=== PATIENT | male | born 1945 | race Hispanic/Latino ===

== ENCOUNTER 2021-11-13 05:48 | Day surgery (SDC) | payer OTHER ==
[2021-11-08 15:44] LABS: BASOPHILS % (AUTO) 0.4 % (0.0-5.0); EOSINOPHILS % (AUTO) 11.3 % (0.0-8.0); HEMATOCRIT 41.2 % (42-54); LYMPHOCYTES % (AUTO) 31.7 % (21.0-51.0); MEAN CORPUSCULAR HEMOGLOBIN 31.4 pg (27.0-33.0); MEAN CORPUSCULAR HGB CONC 33.5 g/dL (32.0-36.0); MEAN CORPUSCULAR VOLUME 93.6 fL (79-99); MONOCYTES % (AUTO) 8.3 % (3.0-13.0); NEUTROPHILS % (AUTO) 47.9 % (40.0-77.0); PLATELET COUNT (AUTO) 133 K/uL (130-400); RED CELL DISTRIBUTION WIDTH 13.5 % (11.0-15.5)
[2021-11-08 15:54] LABS: INR 0.96 (0.85-1.15); PROTHROMBIN TIME 10.5 SEC (9.6-11.6)
[2021-11-08 15:55] LABS: PARTIAL THROMBOPLASTIN TIME 25.1 SEC (26.3-35.5)
[2021-11-08 15:57] LABS: CREATININE 1.6 mg/dL (0.5-1.5); POTASSIUM 4.9 mmol/L (3.5-5.1)
[2021-11-12 11:58] VITALS: BP 136/71
[2021-11-13] VITALS (9 sets, daily range): BP systolic 95–152; BP diastolic 61–85
[~2021-11-13] VITALS: Ht 175.3 cm; Wt 108.7 kg
[~2021-11-13 05:48] MED LIST: AEC81 PO; AMIO200T68 PO; ATOR10 PO; CARV25TA77 PO; FURO20TA4 PO; GABA300C PO; METF-444 PO; SACU1TAB4 PO; VITAMIN B12 PO
[2021-11-13] MEDS ORDERED: 0.9%NACL 1000ML 1,000 ML IV ONE (07:18)
[2021-11-13] MEDS ORDERED: MIDAZOLAM HCL 1 MG/ML 2ML VIAL ONE ×2 (07:40→07:56)
[2021-11-13] MEDS ORDERED: CEFAZOLIN SODIUM 1 GM VIAL ONE ×2 (07:40→09:08)
[2021-11-13] MEDS ORDERED: BUPIVACAINE/PF 0.25% 30ML VIAL IJ ONE (07:40)
[2021-11-13] MEDS ORDERED: LIDOCAINE HCL 400MG/20ML VIAL ONE (07:40)
[2021-11-13] MEDS ORDERED: MEPERIDINE-PF 25 MG/ML SYG ONE ×2 (07:40→07:56)
[2021-11-13] MEDS ORDERED: OCTYL 2-CYANOACRYLATE 1 EACH TP ONE (08:45)
[2021-11-13] MEDS ORDERED: DEXTROSE 50%-WATER 50 ML DISP.SYRIN IV PRN (09:00)
[2021-11-13] MEDS ORDERED: ACETAMINOPHEN 325 MG TAB PO PRN ×2 (09:00)
[2021-11-13] MEDS ORDERED: INSULIN HUMULIN R 100 UNIT/ML 3ML SQ SCH (11:30)
[2021-11-13] MEDS ORDERED: CEFAZOLIN SODIUM 1 GM VIAL IVP SCH (14:00)
== END 2021-11-13 12:50 | disposition home or self-care (01) ==
LOC: DAH 05:48
PROVIDERS: ATTEND Internal Medicine Cardiovascular Disease
DX: Z45.02 Encounter for adjustment and management of automatic implantable cardiac defibrillator (principal); I42.8 Other cardiomyopathies; E11.22 Type 2 diabetes mellitus with diabetic chronic kidney disease; I50.42 Chronic combined systolic (congestive) and diastolic (congestive) heart failure; N18.30 Chronic kidney disease, stage 3 unspecified; I49.5 Sick sinus syndrome; E78.5 Hyperlipidemia, unspecified; G47.33 Obstructive sleep apnea (adult) (pediatric); Z79.84 Long term (current) use of oral hypoglycemic drugs; Z79.82 Long term (current) use of aspirin; Z79.01 Long term (current) use of anticoagulants; Z83.3 Family history of diabetes mellitus; Z82.49 Family history of ischemic heart disease and other diseases of the circulatory system; Z98.890 Other specified postprocedural states; Z79.899 Other long term (current) drug therapy
CPT/HCPCS: 33264; 36415; 80048; 82948 ×2; 85025; 85610; 85730; 93005; A4215; A4216; A4221; A4222; A4223 ×3; A4606; A4663; C1882; J0690 ×2; J2175 ×2; J2250 ×2; J3490 ×2; J7030; 99156; 99157

== ENCOUNTER → 2023-05-08 | Outpatient (CLI) | payer OTHER | END | disposition home or self-care (01) | LOC: RAH 14:02 | PROVIDERS: ATTEND Internal Medicine | DX: S49.92XS Unspecified injury of left shoulder and upper arm, sequela (principal) | CPT/HCPCS: 73030 ==

== ENCOUNTER → 2023-06-05 | Outpatient (CLI) | payer OTHER | END | disposition home or self-care (01) | LOC: RAH 14:17 | PROVIDERS: ATTEND Nurse Practitioner Family | DX: J45.909 Unspecified asthma, uncomplicated (principal) | CPT/HCPCS: 71046 ==

== ENCOUNTER → 2024-08-09 | Outpatient (CLI) | payer OTHER ==
--- NOTE | 2024-08-09 15:09 | HMCIMG ---
US VENOUS DOPPLER UNILATERAL HISTORY: Swelling COMPARISON: None TECHNIQUE: Right lower extremity venous Doppler ultrasound study was performed. FINDINGS: The right common femoral, femoral, popliteal, and posterior tibial veins are visualized. Noncompressible thrombi are seen throughout the right lower extremity consistent with deep venous thrombosis. Noncompressible thrombi are seen in the right greater saphenous vein consistent with superficial thrombophlebitis. IMPRESSION: 1. Extensive deep venous thrombosis of right lower extremity. Right greater saphenous vein superficial thrombophlebitis.
== END | disposition home or self-care (01) ==
LOC: RAH 13:01
PROVIDERS: ATTEND Internal Medicine Cardiovascular Disease
DX: I80.01 Phlebitis and thrombophlebitis of superficial vessels of right lower extremity (principal); M79.89 Other specified soft tissue disorders
CPT/HCPCS: 93971